=== PATIENT | female | born 1995 | race Caucasian/White ===

== ENCOUNTER 2017-08-24 17:07 | Emergency (ER) | payer SELFPAY ==
[~2017-08-24] VITALS: Ht 165.1 cm; Wt 67.1 kg
[~2017-08-24 17:07] MED LIST: synthroid
[2017-08-24] MEDS ORDERED: ACETAMINOPHEN/CODEINE 300MG - 30MG TAB PO ONE (20:30)
[2017-08-24] MEDS ORDERED: ONDANSETRON HCL 4 MG ORAL DISINTEGRATING TAB PO ONE (20:30)
--- NOTE | 2017-08-24 22:38 | Diagnostic Imaging Report ---
Exam: Head CT without contrast History: Trauma, possible concussion Comparison studies: None Technique: Axial images were obtained from the skull base to the vertex. Coronal and sagittal images reconstructed from the axial data. Intravenous contrast: None Findings: Scalp: No abnormalities. Bones: No fractures, blastic or lytic lesions. Brain sulci: Appropriate for age. Ventricles: Normal in size and configuration. No hydrocephalus. Extra-axial spaces: No masses, no fluid collection. Parenchyma: No abnormal densities. No masses, acute hemorrhage, acute or chronic vascular insults. Sellar/suprasellar region: No abnormalities. Craniocervical junction: Patent foramen magnum. No Chiari one malformation. Incidental findings: Mild inflammatory mucosal thickening with small fluid level in the left sphenoid sinus.. IMPRESSION: 1. No intracranial or acute posttraumatic extracranial abnormalities. 2. Nonspecific inflammatory changes in the left sphenoid sinus could be correlated for sinusitis. Signed by: Dr. Bigg Roche M.D. on 08/24/2017 10:35 PM
== END 2017-08-25 00:05 | disposition home or self-care (01) ==
LOC: ER 17:07
DX: S00.83XA Contusion of other part of head, initial encounter (principal); R51 Headache; R11.0 Nausea; W22.09XA Striking against other stationary object, initial encounter; Y92.008 Other place in unspecified non-institutional (private) residence as the place of occurrence of the external cause; J45.909 Unspecified asthma, uncomplicated
CPT/HCPCS: 70450; 99283